=== PATIENT | male | born 1965 | race Two or more races ===

== ENCOUNTER 2017-12-26 13:59 | Emergency (ER) | payer SELFPAY ==
[2017-12-26] MEDS ORDERED: Diphtheria,Pertussis(Acell),Tetanus Vaccine 0.5 ML SDV IM ONE (14:22)
[2017-12-26] MEDS ORDERED: Lidocaine 1% with EPINEPHrine 1:100,000 20 ML MDV INJECT ONE (14:22)
[2017-12-26] MEDS ORDERED: Acetaminophen/HYDROcodone 325-5 MG Tab PO ONE (14:24)
[2017-12-26] MEDS ORDERED: Proparacaine 0.5% Ophth Soln 15 ML Bottle EYERT ONE (14:25)
--- NOTE | 2017-12-26 14:39 | EDM.PDOC ---
ED HPI GENERAL MEDICAL PROBLEM - General Chief Complaint: Eye Problems Stated Complaint: RIGHT EYE/MOUTH INJURY Time Seen by Provider: 12/26/17 14:15 Source of Information: Reports: Patient History Limitations: Reports: Language Barrier ([employer] translating.) - History of Present Illness INITIAL COMMENTS - FREE TEXT/NARRATIVE: Patient is a 52-year-old male who does not speak any Yakut presents to the ED after suffering a contusion to the right side of his face and eye. Per nuclear weapons mechanical specialist which is a coworker states patient was unhooking a hose from a coal washer tender when the hose flew off abruptly causing the wrench to fly up and hit him in the head. He was not knocked out. States has pain to the right forehead and eye. Denies any vision changes, n/v, n/t to extremities, neck pain , or any additional complaints. He is not up to date with tetanus. He has no past medical history and currently taking any medications. - Related Data Allergies Allergy/AdvReac Type Severity Reaction Status Date / Time No Known Allergies Allergy Verified 12/26/17 14:10 Home Meds: Home Meds . [No Known Home Meds] 12/26/17 [History] Past Medical History - Past Health History Medical/Surgical History: Denies Medical/Surgical History Social & Family History - Tobacco Use Smoking Status *Q: Never Smoker - Caffeine Use Caffeine Use: Reports: None - Recreational Drug Use Recreational Drug Use: No ED ROS GENERAL - Review of Systems Review Of Systems: See Below Constitutional: Reports: No Symptoms HEENT: Denies: Eye Pain, Vision Change Respiratory: Reports: No Symptoms Cardiovascular: Reports: No Symptoms Musculoskeletal: Denies: Neck Pain, Back Pain Skin: Reports: Other (Lacerations to the right upper eyelid and also right cheek.) Neurological: Reports: Headache. Denies: Confusion, Dizziness, Numbness, Syncope, Tingling, Difficulty Walking, Weakness ED EXAM GENERAL W FULL EYE - Physical Exam Exam: See Below Exam Limited By: No Limitations General Appearance: Alert, WD/WN, No Apparent Distress Eye Exam: Right Eye: Conjunctival Injection, Corneal Abrasion (Suspected), Globe Laceration (Unseen), Bilateral Eye: EOMI, Nystagmus (None noted), PERRL Visual Acuity (R) 20/: 70 Visual Acuity (L) 20/: 25 With Correction: No Eyelids: Right: Ecchymosis (Upper and lower), Infraorbital Anesthesia (With relief of symptoms), Other ( ) Conjunctiva & Sclera: Right: Injected (Slightly injected) Cornea Exam: Right: Normal Appearance, Corneal Abrasion (non noted), Examined with Flourescein Extraocular Movements: Bilateral: Intact Pupillary Size: Bilateral: 2 mm Pupillary Reaction: Bilateral: Brisk Anterior Chamber: Right: Normal Appearance Ears: Normal External Exam, Normal Canal, Hearing Grossly Normal, Normal TMs Nose: No Blood, Nasal Tenderness, Other (Slight swelling noted to the bridge of the nose.) Throat/Mouth: Normal Inspection, Normal Voice, No Airway Compromise Head: Other (Tenderness along the right forehead where small abrasion present.) Neck: Normal Inspection, Supple, Non-Tender, Full Range of Motion Respiratory/Chest: No Respiratory Distress, Lungs Clear, Normal Breath Sounds, No Accessory Muscle Use Cardiovascular: Normal Peripheral Pulses, Regular Rate, Rhythm Neurological: Alert, Oriented, CN II-XII Intact, Normal Cognition, No Motor/ Sensory Deficits Psychiatric: Normal Affect, Normal Mood Skin Exam: Warm, Dry Course - Vital Signs Last Recorded V/S: Last Vital Signs Temp 97 F 12/26/17 14:05 Pulse 54 L 12/26/17 14:05 Resp 18 12/26/17 14:05 BP 170/96 H 12/26/17 14:05 Pulse Ox 98 12/26/17 14:05 - Orders/Labs/Meds Orders: Active Orders 24 hr Category Date Time Status Vaccines to be Administered [RC] PER UNIT ROUTINE Care 12/26/17 14:22 Active Meds: Medications Discontinued Medications Generic Name Dose Route Start Last Admin Trade Name Beto PRN Reason Stop Dose Admin Hydrocodone Bitart/Acetaminophen 1 tab 12/26/17 14:24 12/26/17 14:43 Banks 325-5 Mg PO 12/26/17 14:25 1 tab ONETIME ONE Administration Diphtheria/Tetanus/Acell Pertussis 0.5 ml 12/26/17 14:22 12/26/17 14:52 Adacel IM 12/26/17 14:23 0.5 ml .ONCE ONE Administration Lidocaine/Epinephrine 20 ml 12/26/17 14:22 12/26/17 15:03 Xylocaine 1% With Epinephrine 1:100,000 INJECT 04/18/18 14:23 20 ml ONETIME ONE Administration Proparacaine HCl 1 ml 12/26/17 14:25 12/26/17 14:45 Proparacaine 0.5% Ophth Soln EYERT 12/26/17 14:26 2 drop ONETIME ONE Administration - Re-Assessments/Exams Free Text/Narrative Re-Assessment/Exam: On examination patient has approximate half inch laceration to the right upper eyelid and along the nasolabial fold. In addition tissue measuring approximately a quarter inch has been pulled away from the medial canthus. Pupils are reactive to light. EOMs are intact. It appears globe is intact. Will obtain visual acuity test, head CT and maxillofacial bones without contrast, update his tetanus, and ordered Banks one tab by mouth for pain. I Have also ordered proparacaine to be applied to the right eye for discomfort. Suspect he may have a corneal abrasion. Will be in contact with on-call crew leader gluing. Fluorescein stain applied with no obvious corneal abrasion with mejia lamp. Laceration to the right cheek is approximately 1 inch in length. Extends from the medial canthus. 12/26/17 15:[address] Granados j2ee application developer crew leader gluing at [facility]. She will see the patient this evening. Wishes for the patient to go to the [facility] at [address] [place] [address] Street. Discussed this with patient and nuclear weapons mechanical specialist. Patient does have a ride. Will remain NPO until surgery completed. Departure - Departure Time of Disposition: 15:51 Disposition: DC/Tfer to Other 70 Condition: Good, Fair Clinical Impression: Injury of canthus of eyelid Laceration of eyebrow, right Qualifiers: Encounter type: initial encounter Qualified Code(s): S01.111A - Laceration without foreign body of right eyelid and periocular area, initial encounter Laceration of right cheek Qualifiers: Encounter type: initial encounter Qualified Code(s): S01.411A - Laceration without foreign body of right cheek and temporomandibular area, initial encounter - Discharge Information Instructions: Facial Laceration, [id number] Referrals: Aurora Granados MD [Ordering Only Provider] - Forms: ED Department Discharge Additional Instructions: Do not eat and or drink anything upon discharge from the E.D. Dr. Granados Opthalmologists with [facility] will see you this evening at the [facility]. [facility] is located [address] in [place], [place]. Please call [phone] if you arrive with no answer at the front door. Do not leave until evaluated. - My Orders Last 24 Hours: My Active Orders 12/26/17 14:22 Vaccines to be Administered [RC] PER UNIT ROUTINE - Assessment/Plan Last 24 Hours: My Active Orders 12/26/17 14:22 Vaccines to be Administered [RC] PER UNIT ROUTINE
--- NOTE | 2017-12-26 15:07 | CT ---
Head CT Technique: Multiple axial sections through the brain were obtained. Intravenous contrast was not utilized. Comparison: No prior intracranial imaging. Findings: Soft tissue swelling and air identified within the right periorbital region. Ventricles along with basal cisterns and sulci over convexities are within normal limits. No abnormal parenchymal densities are seen. No evidence of intracranial hemorrhage. No midline shift or mass effect is seen. Bone window settings were reviewed which shows no acute calvarial abnormality. Impression: 1. Soft tissue swelling and soft tissue air within the right periorbital region. 2. Nothing acute is otherwise seen on noncontrast head CT study. Diagnostic code #3
--- NOTE | 2017-12-26 15:09 | CT ---
CT facial bones Technique: Multiple axial sections through the facial bones were obtained. Reconstructed coronal and sagittal images were reviewed. Findings: Soft tissue swelling is seen within the right cheek and within the right periorbital region. Soft tissue air is identified within the area of soft tissue swelling compatible with skin injury. Right and left globes are symmetric. No facial bone fracture is identified. Impression: 1. Soft tissue swelling and air is seen within the right cheek and within the right periorbital region. 2. No facial bone fracture is seen. Paranasal sinuses are clear. Diagnostic code #3
== END 2017-12-26 16:09 | disposition other institution (70) ==
LOC: JD.ED 13:59
DX: S01.111A Laceration without foreign body of right eyelid and periocular area, initial encounter (principal); S01.411A Laceration without foreign body of right cheek and temporomandibular area, initial encounter; S05.91XA Unspecified injury of right eye and orbit, initial encounter; W22.8XXA Striking against or struck by other objects, initial encounter
CPT/HCPCS: 70450; 70486; 90471; 90715; 99284; A9270; 99283